=== PATIENT | male | born 1940 | race Caucasian/White ===

== ENCOUNTER 2021-03-18 07:07 | Day surgery (SDC) | payer MEDICARE, OTHER ==
[~2021-03-18 07:07] MED LIST: Acetaminophen 325 MG Tab PO PRN; Acetaminophen/Codeine 300-30 MG Tab PO PRN; Cataract Ophth Solution EYELF ONE; Moxifloxacin 0.5% Ophth Soln 3 ML Bottle EYELF ONE; Ondansetron 4 MG/2 ML SDV IVPUSH PRN; Phenylephrine 10% Ophth Soln 5 ML Bot EYELF ONE; Povidone-Iodine 5% Sterile Ophth Soln 30 ML Bottle EYELF ONE; Proparacaine 0.5% Ophth Soln 15 ML Bottle EYELF ONE; Sodium Chloride 0.9% 10 ML Syringe FLUSH PRN; Timolol Maleate 0.5% Ophth Soln 5 ML Bottle EYELF ONE; Tropicamide 1% Ophth Soln 15 ML Bottle EYELF ONE
[2021-03-18] MEDS ORDERED: Midazolam 1 MG/ML 2 ML SDV IV ONE (07:08)
[2021-03-18] MEDS ORDERED: Sodium Chloride 0.9% 10 ML Syringe IV ONE (07:08)
[2021-03-18] MEDS ORDERED: Dexamethasone 4 MG/ML SDV IV ONE (07:08)
[2021-03-18] MEDS ORDERED: Lidocaine 1% 30 ML SDV ONE (08:18)
[2021-03-18] MEDS ORDERED: Diclofenac Sodium 0.1% Ophth Soln 5 ML Bottle EYELF ONE (08:19)
[2021-03-18] MEDS ORDERED: Apraclonidine 0.5% Ophth Soln 5 ML Bot EYELF ONE (08:19)
[2021-03-18] MEDS ORDERED: Povidone-Iodine 5% Sterile Ophth Soln 30 ML Bottle EYELF ONE (08:19)
[2021-03-18] MEDS ORDERED: Dexamethasone/Neomycin/Polymyxin B Ophth Oint 3.5 GM Tube EYELF ONE (08:19)
[2021-03-18] MEDS ORDERED: Tetracaine HCl/PF 0.5% 4 ML Bottle EYELF ONE (08:19)
[2021-03-18] MEDS ORDERED: Vancomycin 500 MG SDV EYELF ONE (08:20)
[2021-03-18] MEDS ORDERED: Chondroitin Sulfate/Hyaluronate Sodium Ophth Inj 0.5 ML Syringe IOCULAR ONE (08:20)
[2021-03-18] MEDS ORDERED: Acetylcholine 20 MG/2 ML Intraocular Inj Kit EYELF ONE (08:20)
[2021-03-18] MEDS ORDERED: Balanced Salt Solution Ophth Irrig 500 ML Bottle IOCULAR ONE (08:20)
[2021-03-18] MEDS ORDERED: Chondroitin Sulfate/Hyaluronate Sodium Ophth Inj 0.75 ML Syringe EYELF ONE (08:20)
[2021-03-18 12:57] VITALS: BP 140/57; PULSE 49
--- NOTE | 2021-03-18 14:54 | OR ---
DATE: 03/18/2021 PREOPERATIVE DIAGNOSES: 1. Visually significant mixed cataract, left eye. 2. Primary open angle glaucoma, left eye. POSTOPERATIVE DIAGNOSES: 1. Visually significant mixed cataract, left eye. 2. Primary open angle glaucoma, left eye. PROCEDURES: 1. Extracapsular cataract extraction with intraocular lens implant. 2. Placement of iStent for glaucoma control. SURGEON: Edwin Burns MD ANESTHESIA: Local MAC. INDICATION: Mr. Miles was seen in the clinic. He is unhappy with his vision and has difficulty with reading and a progressive change. He has difficulty with bright lights and glare. Saw his regular electro mechanical designer, Dr. Govea. Dr. Govea was not able to improve his vision and reduce his symptoms with the change in glasses. Examination reveals visually significant mixed cataract and moderate primary open-angle glaucoma, which is borderline controlled. Explained options to Mr. Miles. I have offered cataract surgery both to improve vision and to assist with glaucoma control. I explained risks including the potential for infection, retinal detachment, loss of vision, need for additional surgery, amongst others. We discussed implant options. He has requested a toric implant. I recommended surgery with the iStent. He understands that his visual potential may be limited by optic nerve health. He also understands that he may still need glasses for some activities. OPERATIVE DESCRIPTION: The patient was prepped and draped in a sterile fashion and topical anesthesia was applied. Attention was placed on the operative eye. A sterile lid speculum was placed to allow operative exposure. Paracentesis was made temporal. Intracameral lidocaine was administered. Viscoelastic was injected. A full-thickness corneal incision was made using the trapezoidal blade. Bent needle cystotome was then used to make a small michelle in the anterior capsule and a 360-degree curvilinear capsulorrhexis was created. Nucleus was then hydrodissected and hydrodelinated using balanced saline solution. Nucleus was then decompressed centrally and rotated and noted to be free of adhesions. Nucleus was then removed using the phacoemulsification handpiece. Additional viscoelastic was then injected into the capsular bag and the intraocular lens was inserted into the capsular bag. Implant was oriented to correspond with preoperative corneal carney made with the patient in the upright position. The iStent portion of the procedure was then performed. Following removal of the nucleus and cortex, the irrigation and aspiration handpiece was inserted to remove viscoelastic from the posterior surface of the IOL. Additional viscoelastic was then inserted into the anterior chamber angle directly opposite the corneal incision. Miochol was injected into the nasal iris to promote pupillary contraction. The patient's head was then rotated 35 degrees away from the initial position. The operating microscope was also rotated 35 degrees to achieve the proper orientation. The gonioprism was then placed onto the eye. The iStent was then inserted into the anterior chamber with the right hand and the stent was introduced into the pigmented trabecular meshwork. The stent was advanced beneath the trabecular meshwork until approximately two-thirds of the body was covered and then the stent was released from the insertion device. The stent was then tapped into its final resting position using the insertion device. The device was then reinspected to ensure that it was securely in position. The viscoelastic was aspirated from the anterior chamber. Wound and paracentesis sites were hydrated using balanced saline solution. Vancomycin 0.1 mL was injected into the anterior chamber. Intraocular lens was inspected and noted to be clear and well centered. Postoperative drops were placed and a sterile eye patch and shield were placed over the operative eye. The patient was then transported to the postoperative recovery area having tolerated the procedure well. No complications occurred. [facility] /[id number]
== END 2021-03-18 09:36 | disposition home or self-care (01) ==
LOC: DL.SDS 07:07
PROVIDERS: ATTEND Ophthalmology
DX: H26.8 Other specified cataract (principal); H40.1122 Primary open-angle glaucoma, left eye, moderate stage; I10 Essential (primary) hypertension; Z79.899 Other long term (current) drug therapy
CPT/HCPCS: 00140; A9270-GY; C1783; J1100; J2250; J3370; V2787-GY

== ENCOUNTER 2021-03-25 07:02 | Day surgery (SDC) | payer MEDICARE, OTHER ==
[~2021-03-25 07:02] MED LIST changes: -Cataract Ophth Solution EYELF ONE; +Cataract Ophth Solution EYERT ONE; -Moxifloxacin 0.5% Ophth Soln 3 ML Bottle EYELF ONE; +Moxifloxacin 0.5% Ophth Soln 3 ML Bottle EYERT ONE; -Phenylephrine 10% Ophth Soln 5 ML Bot EYELF ONE; +Phenylephrine 10% Ophth Soln 5 ML Bot EYERT ONE; -Povidone-Iodine 5% Sterile Ophth Soln 30 ML Bottle EYELF ONE; +Povidone-Iodine 5% Sterile Ophth Soln 30 ML Bottle EYERT ONE; -Proparacaine 0.5% Ophth Soln 15 ML Bottle EYELF ONE; +Proparacaine 0.5% Ophth Soln 15 ML Bottle EYERT ONE; -Timolol Maleate 0.5% Ophth Soln 5 ML Bottle EYELF ONE; +Timolol Maleate 0.5% Ophth Soln 5 ML Bottle EYERT ONE; -Tropicamide 1% Ophth Soln 15 ML Bottle EYELF ONE; +Tropicamide 1% Ophth Soln 15 ML Bottle EYERT ONE
[2021-03-25] MEDS ORDERED: Dexamethasone 4 MG/ML SDV IV ONE (07:03)
[2021-03-25] MEDS ORDERED: Midazolam 1 MG/ML 2 ML SDV IV ONE (07:03)
[2021-03-25] MEDS ORDERED: Sodium Chloride 0.9% 10 ML Syringe IV ONE (07:03)
[2021-03-25 07:31] VITALS: BP 162/66; PULSE 51
[2021-03-25] MEDS ORDERED: Diclofenac Sodium 0.1% Ophth Soln 5 ML Bottle EYERT ONE (08:34)
[2021-03-25] MEDS ORDERED: Tetracaine HCl/PF 0.5% 4 ML Bottle EYERT ONE (08:34)
[2021-03-25] MEDS ORDERED: Povidone-Iodine 5% Sterile Ophth Soln 30 ML Bottle EYERT ONE (08:34)
[2021-03-25] MEDS ORDERED: Dexamethasone/Neomycin/Polymyxin B Ophth Oint 3.5 GM Tube EYERT ONE (08:35)
[2021-03-25] MEDS ORDERED: Lidocaine 1% 30 ML SDV ONE (08:35)
[2021-03-25] MEDS ORDERED: Balanced Salt Solution Ophth Irrig 500 ML Bottle IOCULAR ONE (08:35)
[2021-03-25] MEDS ORDERED: Apraclonidine 0.5% Ophth Soln 5 ML Bot EYERT ONE (08:35)
[2021-03-25] MEDS ORDERED: Vancomycin 500 MG SDV ONE (08:35)
[2021-03-25] MEDS ORDERED: Chondroitin Sulfate/Hyaluronate Sodium Ophth Inj 0.5 ML Syringe IOCULAR ONE (08:42)
[2021-03-25] MEDS ORDERED: Chondroitin Sulfate/Hyaluronate Sodium Ophth Inj 0.75 ML Syringe EYERT ONE (08:42)
[2021-03-25] MEDS ORDERED: Acetylcholine 20 MG/2 ML Intraocular Inj Kit IOCULAR ONE (08:43)
--- NOTE | 2021-03-25 15:44 | OR ---
DATE: 03/25/2021 PREOPERATIVE DIAGNOSES: 1. Visually significant mixed cataract, right eye. 2. Primary open angle glaucoma, right eye. POSTOPERATIVE DIAGNOSES: 1. Visually significant mixed cataract, right eye. 2. Primary open angle glaucoma, right eye. PROCEDURES: 1. Extracapsular cataract extraction with intraocular lens implant. 2. Placement of iStent for glaucoma control. SURGEON: Edwin Burns MD ANESTHESIA: Local MAC. INDICATION: Mr. Miles was seen in the clinic. He was referred by his regular relationship consultant, Dr. Govea. He has complained of a progressive decrease in vision, difficulty seeing, difficulty reading. Dr. Govea did attempt to change glasses, but glasses did not make any improvement in his vision. Examination revealed mixed cataract and moderate primary open-angle glaucoma under borderline control. I explained options and recommended cataract surgery both to improve vision and to potentially improve glaucoma control. I explained risks, including, but not limited to, infection, retinal detachment, loss of vision, need for additional surgery amongst others. We discussed implant options. He has requested a toric implant. I recommended surgery with the iStent. OPERATIVE DESCRIPTION: The patient was prepped and draped in a sterile fashion and topical anesthesia was applied. Attention was placed on the operative eye. A sterile lid speculum was placed to allow operative exposure. Paracentesis was made temporal. Intracameral lidocaine was administered. Viscoelastic was injected. A full-thickness corneal incision was made using the trapezoidal blade. Bent needle cystotome was then used to make a small michelle in the anterior capsule and a 360-degree curvilinear capsulorrhexis was created. Nucleus was then hydrodissected and hydrodelinated using balanced saline solution. Nucleus was then decompressed centrally and rotated and noted to be free of adhesions. Nucleus was then removed using the phacoemulsification handpiece. Additional viscoelastic was then injected into the capsular bag and the intraocular lens was inserted into the capsular bag. The implant was oriented to correspond with preoperative corneal carney made with the patient in the upright position. The iStent portion of the procedure was then performed. Following removal of the nucleus and cortex, the irrigation and aspiration handpiece was inserted to remove viscoelastic from the posterior surface of the IOL. Additional viscoelastic was then inserted into the anterior chamber angle directly opposite the corneal incision. Miochol was injected into the nasal iris to promote pupillary contraction. The patient's head was then rotated 35 degrees away from the initial position. The operating microscope was also rotated 35 degrees to achieve the proper orientation. The gonioprism was then placed onto the eye. The iStent was then inserted into the anterior chamber with the right hand and the stent was introduced into the pigmented trabecular meshwork. The stent was advanced beneath the trabecular meshwork until approximately two-thirds of the body was covered and then the stent was released from the insertion device. The stent was then tapped into its final resting position using the insertion device. The device was then reinspected to ensure that it was securely in position. The viscoelastic was aspirated from the anterior chamber. Wound and paracentesis sites were hydrated using balanced saline solution. Vancomycin 0.1 mL was injected into the anterior chamber. Intraocular lens was inspected and noted to be clear and well centered. Postoperative drops were placed and a sterile eye patch and shield were placed over the operative eye. The patient was then transported to the postoperative recovery area having tolerated the procedure well. No complications occurred. [facility] /[id number]
== END 2021-03-25 09:51 | disposition home or self-care (01) ==
LOC: DL.SDS 07:02
PROVIDERS: ATTEND Ophthalmology
DX: H26.8 Other specified cataract (principal); H40.1112 Primary open-angle glaucoma, right eye, moderate stage; I10 Essential (primary) hypertension; N35.914 Unspecified anterior urethral stricture, male
CPT/HCPCS: 0191T; 66984; A9270; C1783; J1100; J2250; J3370; V2787

== ENCOUNTER 2021-04-01 16:29 | Emergency (ER) | payer MEDICARE, OTHER ==
[2021-04-01] MEDS ORDERED: Sodium Chloride 0.9% 10 ML Syringe FLUSH PRN (16:32)
--- NOTE | 2021-04-01 16:53 | CT ---
EXAMINATION: Head wo Cont SEX: Male AGE: 80 years CLINICAL HISTORY: 80-year-old dehydrated, confused male who exhibited right sided weakness and right facial droop while "denis". Scan technique: Volume acquisition of data emergency unenhanced CT scan of the head and brain obtained with the patient lying supine on the Siemens multi slice scanner [place], [place]. All data archived in the PACS system for storage, reformatting axial/sagittal/coronal planes and study. (Bone/brain windows) Interpretation: 1. Generalized mild cerebral cortical atrophy pattern symmetric with underlying mirror-image normal ventricular system. No hydrocephalus. 2. No focal areas of cerebral edema, ischemic infarct or encephalomalacia however patient does exhibit changes of the periventricular white matter consistent with microvascular ischemia (scattered low-attenuation areas). 3. No supratentorial or posterior fossa mass lesion. 4. Uniformly thick bony calvarium. Symmetric clear pneumatization of the paranasal and mastoid sinuses. 5. No sign of acute intracerebral, intraventricular or subarachnoid bleed. No extracerebral epidural/subdural hematoma. 6. Midline falx/pineal and symmetric choroid plexus calcifications. 7. Cerebellum and brainstem unremarkable. CONCLUSION: Scattered microvascular ischemic changes. No sign of intracranial mass, hydrocephalus or bleed.
[2021-04-01 17:15] VITALS: BP 137/59; PULSE 69
--- NOTE | 2021-04-01 17:15 | CR ---
PROCEDURE INFORMATION: Exam: XR Chest Exam date and time: 04/01/2021 5:04 PM Age: 80 years old Clinical indication: Other: Possible aspiration; Additional info: Acute CVA, possible aspiration TECHNIQUE: Imaging protocol: XR of the chest. Views: 1 view. COMPARISON: CR Chest 1V Frontal 02/05/2015 4:41 PM FINDINGS: Lungs: The lungs are clear. Pleural spaces: No pleural effusion. No pneumothorax. Heart/Mediastinum: The heart is not enlarged. Vasculature: Tortuous thoracic aorta stable. Bones/joints: Status post median sternotomy. Multiple healed left lateral rib fractures. IMPRESSION: 1. Postoperative chest 2. No acute findings. No change.
[2021-04-01] MEDS ORDERED: ALTEPLASE IV STA (17:25)
[2021-04-01] MEDS ORDERED: INFUSION IV STA (17:25)
[2021-04-01 17:36] LABS: ANION GAP 14.8 mEq/L (7-13); CHLORIDE,CL 106 mmol/L (98-107); SODIUM,NA 142 mmol/L (136-145)
--- NOTE | 2021-04-01 17:44 | EDM.PDOC ---
Scribed by Lorena Mejía 04/01/21 7700 for Franklin Devlin MD ED HPI GENERAL MEDICAL PROBLEM - General Chief Complaint: Neuro Symptoms/Deficits Stated Complaint: AMBULANCE Time Seen by Provider: 04/01/21 16:36 Source of Information: Reports: Patient, EMS, EMS Notes Reviewed, Family (, daughter), Old Records, RN, RN Notes Reviewed History Limitations: Reports: No Limitations - History of Present Illness INITIAL COMMENTS - FREE TEXT/NARRATIVE: Patient arrives to ED by [facility]. Patient was singling a roof, thought he was getting a heat stroke and realized the right side of his body was profoundly weak. Witnesses noted that he was drooling. Unclear whether he had facial droop at that time or not. Denies headache, visual changes, s eizure or loss of bowel or bladder control. Last known well time: 1600HRS. Onset: Today Duration: Constant Location: Reports: Face, Upper Extremity, Right, Lower Extremity, Right Quality: Reports: Other (Denies pain) Severity: Severe Improves with: Reports: None Worsens with: Reports: None Associated Symptoms: Reports: No Other Symptoms - Related Data Allergies Allergy/AdvReac Type Severity Reaction Status Date / Time No Known Allergies Allergy Verified 03/25/21 07:23 Home Meds: Home Meds Aspirin [Kamilla Chewable Aspirin] 81 mg PO DAILY 02/05/15 [History] Docusate Sodium [Colace] 100 mg PO BID 02/05/15 [History] Famotidine [Pepcid] 20 mg PO DAILY 02/05/15 [History] Lisinopril 5 mg PO DAILY 02/05/15 [History] Nitroglycerin [Nitrostat] 0.4 mg SL [id number] PRN 02/05/15 [History] atenoloL [Tenormin] 50 mg PO DAILY 02/05/15 [History] Acetaminophen [Tylenol Extra Strength] 500 mg PO BID PRN 05/13/16 [History] Multivitamin with Minerals [Multiple Vitamin] 2 tab PO DAILY 05/13/16 [History] atorvaSTATin [Lipitor] 40 mg PO DAILY 12/15/17 [History] Cranberry 400 mg PO DAILY 03/17/21 [History] Ketorolac [Acular 0.5% Ophth Soln] 1 drop EYELF ASDIRECTED 03/17/21 [History] Ofloxacin 1 drop EYELF ASDIRECTED 03/17/21 [History] prednisoLONE acetate [Pred Forte 1% Ophth Susp] 1 drop EYELF ASDIRECTED 03/17/21 [History] Past Medical History HEENT History: Reports: Cataract Cardiovascular History: Reports: CAD, High Cholesterol, Hypertension Respiratory History: Reports: None Gastrointestinal History: Reports: GERD Genitourinary History: Reports: BPH, Other (See Below) 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 Musculoskeletal History: Reports: None Neurological History: Reports: None Psychiatric History: Reports: None Endocrine/Metabolic History: Reports: None Hematologic History: Reports: None Immunologic History: Reports: None Oncologic (Cancer) History: Reports: None Dermatologic History: Reports: None - Infectious Disease History Infectious Disease History: Reports: Chicken Pox, Measles - Past Surgical History Head Surgeries/Procedures: Reports: None HEENT Surgical History: Reports: Cataract Surgery Cardiovascular Surgical History: Reports: Coronary Artery Bypass Respiratory Surgical History: Reports: None GI Surgical History: Reports: Colonoscopy, Colostomy Male Surgical History: Reports: Circumcision, Other (See Below) Other Male Surgeries/Procedures: URETERAL MEATOTOMY. CYSTOSCOPY, DIL URETHRAL STRICTURE 2013, 2017 Endocrine Surgical History: Reports: None Neurological Surgical History: Reports: Lumbar Spine Musculoskeletal Surgical History: Reports: Other (See Below) Other Musculoskeletal Surgeries/Procedures:: lumbar spine surg Oncologic Surgical History: Reports: None Dermatological Surgical History: Reports: None Social & Family History - Family History Family Medical History: No Pertinent Family History - Caffeine Use Caffeine Use: Reports: Coffee Other Caffeine Use: AM 2 CUPS, WINTER TIME MAY HAVE AT LUNCH - Living Situation & Occupation Living situation: Reports: with Family Occupation: Other ED ROS GENERAL - Review of Systems Review Of Systems: Comprehensive ROS is negative, except as noted in HPI. ED EXAM, NEURO - Physical Exam Exam: See Below Exam Limited By: No Limitations General Appearance: Alert, WD/WN, No Apparent Distress Eye Exam: Bilateral Eye: EOMI, Normal Inspection, PERRL Ears: Normal External Exam, Hearing Grossly Normal Nose: Normal Inspection, Normal Mucosa, No Blood Throat/Mouth: Normal Lips, Normal Teeth, Normal Gums, Normal Oropharynx, Normal Voice, No Airway Compromise Head Exam: Atraumatic, Normocephalic Neck: Normal Inspection, Supple, Non-Tender, Full Range of Motion. No: Carotid Bruit Respiratory/Chest: No Respiratory Distress, Lungs Clear, Normal Breath Sounds, No Accessory Muscle Use, Chest Non-Tender Cardiovascular: Normal Peripheral Pulses, Regular Rate, Rhythm, No Edema, No Gallop, No JVD, No Murmur, No Rub GI/Abdominal: Normal Bowel Sounds, Soft, Non-Tender Neurological: Alert, Normal Mood/Affect, Normal Dorsiflexion, Normal Plantar Flexion, Oriented x 3, Abnormal Motor (NIH Stroke score: 3), Other (Right facial weakness, droop. Weak right balloon sander strength. Weak right leg, falls to bed, tremor.) Extremities: Non-Tender, No Pedal Edema, Normal Capillary Refill Psychiatric: Normal Affect, Normal Mood Skin Exam: Warm, Dry, Intact, Normal Color, No Rash #1 Interpretation EKG Date: 04/01/21 Time: 16:56 Rhythm: Other (sinus rhythm) Rate (Beats/Min): 69 [place]: Normal P-Wave: Present QRS: Other (consider left ventricular hypertrophy) ST-T: Normal QT: Normal Comparison: NA - No Prior EKG Course - Vital Signs Last Recorded V/S: Last Vital Signs Temp 98 F 04/01/21 17:04 Pulse 69 04/01/21 17:04 Resp 20 04/01/21 17:04 BP 137/59 L 04/01/21 17:04 Pulse Ox - Orders/Labs/Meds Orders: Active Orders 24 hr Category Date Time Status EKG 12 Lead [EKG Documentation Completion] [RC] STAT Care 04/01/21 16:31 Active NIH Stroke Scale [RC] ASDIRECTED Care 04/01/21 16:31 Active Peripheral IV Care [RC] . DIRECTED Care 04/01/21 16:32 Active C-REACTIVE PROTEIN [CHEM] Stat Lab 04/01/21 17:00 Received COMPREHENSIVE METABOLIC PN,CMP [CHEM] Stat Lab 04/01/21 17:00 Received DRUG SCREEN URINE BIORAD [URCHEM] Stat Lab 04/01/21 16:31 Ordered ETHANOL BLOOD MEDICAL [CHEM] Stat Lab 04/01/21 17:00 Received MAGNESIUM [CHEM] Stat Lab 04/01/21 17:00 Received TROPONIN I HIGH SENSITIVITY [CHEM] Stat Lab 04/01/21 17:00 Received TSH ULTRASENSITIVE [CHEM] Stat Lab 04/01/21 17:00 Received UA RFX LYLE AND CULT IF INDIC [URIN] Stat Lab 04/01/21 16:32 Ordered Sodium Chloride 0.9% [Saline Flush] Med 04/01/21 16:32 Active 10 ml FLUSH ASDIRECTED PRN Peripheral IV Insertion Adult [OM.PC] Stat Oth 04/01/21 16:32 Ordered Medication Orders Sodium Chloride (Sodium Chloride 0.9% 10 Ml Syringe) 10 ml FLUSH ASDIRECTED PRN PRN Reason: Keep Vein Open Labs: Laboratory Tests 04/01/21 04/01/21 Range/Units 17:00 17:00 WBC 11.4 H (5.0-10.0) 10^3/uL RBC 4.54 L (4.6-6.2) 10^6/uL Hgb 15.4 (14.0-18.0) g/dL Hct 44.2 (40.0-54.0) % MCV 97.4 (80-100) fL MCH 33.9 (27.0-34.0) pg MCHC 34.8 (33.0-35.0) g/dL Plt Count 165 (150-450) 10^3/uL Neut % (Auto) 77.1 H (42.2-75.2) % Lymph % (Auto) 14.2 L (20.5-50.1) % Wells % (Auto) 7.3 (2-8) % Eos % (Auto) 1.2 (1.0-3.0) % Baso % (Auto) 0.2 (0.0-1.0) % PT 10.3 (9.0-12.0) SEC INR 1.0 (0.9-1.2) Meds: Medications Generic Name Dose Route Start Last Admin Trade Name Freq PRN Reason Stop Dose Admin Sodium Chloride 10 ml 04/01/21 16:32 Sodium Chloride 0.9% 10 Ml Syringe FLUSH ASDIRECTED PRN Keep Vein Open Discontinued Medications Generic Name Dose Route Start Last Admin Trade Name Freq PRN Reason Stop Dose Admin Alteplase, Recombinant 59.9 mg 0 mls @ 0 mls/hr 04/01/21 17:25 / Alteplase, Recombinant IV 04/01/21 17:26 ASDIRECTED STA - Radiology Interpretation Free Text/Narrative:: CT head: Scattered microvascular ischemic changes. No sign of intracranial mass, hydrocephalus or bleed. See rad report. - Re-Assessments/Exams Free Text/Narrative Re-Assessment/Exam: 04/01/21 17:[address] Bolton via [facility], he advises to offer tPA to the pt. Pt had recent cataract surgery and urethra dilatation, and Dr. Coy does not feel these to be contraindications to tPA. I explained the risks and benefits of tPA to the pt, pt's , and daughter. They acknowledge understanding of the risks and benefits of tPA and wish to receive the medication. Pt will be transferred to [facility] by air ambulance, with Dr. Bolton accepting. 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 DIRECTED UA RFX LYLE AND CULT IF INDIC [URIN] Stat Sodium Chloride 0.9% [Saline Flush] 10 ml FLUSH ASDIRECTED PRN Peripheral IV Insertion Adult [OM.PC] Stat 04/01/21 17:00 C-REACTIVE PROTEIN [CHEM] Stat COMPREHENSIVE METABOLIC PN,CMP [CHEM] Stat ETHANOL BLOOD MEDICAL [CHEM] Stat MAGNESIUM [CHEM] Stat TROPONIN I HIGH SENSITIVITY [CHEM] Stat TSH ULTRASENSITIVE [CHEM] Stat - Assessment/Plan Last 24 Hours: My Active Orders 04/01/21 16:31 EKG 12 Lead [EKG Documentation Completion] [RC] STAT NIH Stroke Scale [RC] ASDIRECTED DRUG SCREEN URINE BIORAD [URCHEM] Stat 04/01/21 16:32 Peripheral IV Care [RC] . DIRECTED UA RFX LYLE AND CULT IF INDIC [URIN] Stat Sodium Chloride 0.9% [Saline Flush] 10 ml FLUSH ASDIRECTED PRN Peripheral IV Insertion Adult [OM.PC] Stat 04/01/21 17:00 C-REACTIVE PROTEIN [CHEM] Stat COMPREHENSIVE METABOLIC PN,CMP [CHEM] Stat ETHANOL BLOOD MEDICAL [CHEM] Stat MAGNESIUM [CHEM] Stat TROPONIN I HIGH SENSITIVITY [CHEM] Stat TSH ULTRASENSITIVE [CHEM] Stat I have read and agree with the documentation that has been completed regarding this visit. By signing this record, I attest that the documentation was completed in my physical presence and is an accurate record of the encounter.
== END 2021-04-01 18:30 ==
LOC: DL.ED 16:29
DX: I63.9 Cerebral infarction, unspecified (principal); I67.82 Cerebral ischemia; I25.10 Atherosclerotic heart disease of native coronary artery without angina pectoris; E78.00 Pure hypercholesterolemia, unspecified; I10 Essential (primary) hypertension; Z79.82 Long term (current) use of aspirin; Z79.899 Other long term (current) drug therapy; Z95.1 Presence of aortocoronary bypass graft
CPT/HCPCS: 36415; 37195; 70450; 71045; 80053; 80307; 83605; 83735; 84443; 84484; 85025; 85610; 86140; 93005; 99285; J2997; 93010

== ENCOUNTER 2021-09-04 08:58 | Emergency (ER) | payer MEDICARE, OTHER ==
--- NOTE | 2021-09-04 09:05 | EDM.PDOC ---
ED HPI GENERAL MEDICAL PROBLEM - General Chief Complaint: Chest Pain Stated Complaint: chest pains Time Seen by Provider: 09/04/21 09:04 Source of Information: Reports: Patient, Old Records, RN, RN Notes Reviewed History Limitations: Reports: No Limitations - History of Present Illness INITIAL COMMENTS - FREE TEXT/NARRATIVE: Pt presents to ER from home by POV with c/o onset of left sided chest pain yesterday while lifting plywood overhead. Pt states the pain is a pressure-like with aching. The pain does not radiate. Denies syncope, lightheadedness, shortness of breath, fever, cough, palpitations, edema, or orthopnea. Pt claims that he had a heart attack 10 years ago and had stents, but no problems since that time. Pt rates the current pain 02/07. Nothing alleviates the pain. Some movements aggravates the pain. Onset: Gradual Onset Date: 09/03/21 Duration: Constant Location: Reports: Chest Quality: Reports: Ache, Pressure Severity: Moderate Associated Symptoms: Reports: No Other Symptoms Treatments STRADDLE BUG: Reports: Acetaminophen - Related Data Allergies Allergy/AdvReac Type Severity Reaction Status Date / Time No Known Allergies Allergy Verified 03/25/21 07:23 Home Meds: Home Meds Aspirin [Kamilla Chewable Aspirin] 81 mg PO DAILY 02/05/15 [History] Docusate Sodium [Colace] 100 mg PO BID 02/05/15 [History] Famotidine [Pepcid] 20 mg PO DAILY 02/05/15 [History] Lisinopril 5 mg PO DAILY 02/05/15 [History] Nitroglycerin [Nitrostat] 0.4 mg SL [id number] PRN 02/05/15 [History] atenoloL [Tenormin] 50 mg PO DAILY 02/05/15 [History] Acetaminophen [Tylenol Extra Strength] 500 mg PO BID PRN 05/13/16 [History] Multivitamin with Minerals [Multiple Vitamin] 2 tab PO DAILY 05/13/16 [History] atorvaSTATin [Lipitor] 40 mg PO DAILY 12/15/17 [History] Cranberry 400 mg PO DAILY 03/17/21 [History] Ketorolac [Acular 0.5% Ophth Soln] 1 drop EYELF ASDIRECTED 03/17/21 [History] Ofloxacin 1 drop EYELF ASDIRECTED 03/17/21 [History] prednisoLONE acetate [Pred Forte 1% Ophth Susp] 1 drop EYELF ASDIRECTED 03/17/21 [History] Past Medical History HEENT History: Reports: Cataract Cardiovascular History: Reports: CAD, High Cholesterol, Hypertension, [place], Stents Respiratory History: Reports: None Gastrointestinal History: Reports: GERD Genitourinary History: Reports: BPH, Other (See Below) 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 Musculoskeletal History: Reports: None Neurological History: Reports: None Psychiatric History: Reports: None Endocrine/Metabolic History: Reports: None Hematologic History: Reports: None Immunologic History: Reports: None Oncologic (Cancer) History: Reports: None Dermatologic History: Reports: None - Infectious Disease History Infectious Disease History: Reports: Chicken Pox, Measles - Past Surgical History Head Surgeries/Procedures: Reports: None HEENT Surgical History: Reports: Cataract Surgery Cardiovascular Surgical History: Reports: Coronary Artery Bypass Respiratory Surgical History: Reports: None GI Surgical History: Reports: Colonoscopy, Colostomy Male Surgical History: Reports: Circumcision, Other (See Below) Other Male Surgeries/Procedures: URETERAL MEATOTOMY. CYSTOSCOPY, DIL URETHRAL STRICTURE 2013, 2017 Endocrine Surgical History: Reports: None Neurological Surgical History: Reports: Lumbar Spine Musculoskeletal Surgical History: Reports: Other (See Below) Other Musculoskeletal Surgeries/Procedures:: lumbar spine surg Oncologic Surgical History: Reports: None Dermatological Surgical History: Reports: None Social & Family History - Family History Family Medical History: No Pertinent Family History - Tobacco Use Tobacco Use Status *Q: Never Tobacco User - Caffeine Use Caffeine Use: Reports: Coffee Other Caffeine Use: AM 2 CUPS, WINTER TIME MAY HAVE AT LUNCH - Living Situation & Occupation Living situation: Reports: with Family Occupation: Other ED ROS GENERAL - Review of Systems Review Of Systems: Comprehensive ROS is negative, except as noted in HPI. ED EXAM, GENERAL - Physical Exam Exam: See Below Exam Limited By: No Limitations General Appearance: Alert, WD/WN, No Apparent Distress Eye Exam: Bilateral Eye: Normal Inspection Nose: Normal Inspection Throat/Mouth: Normal Inspection, Normal Voice, No Airway Compromise Head: Atraumatic, Normocephalic Neck: Normal Inspection, Non-Tender, Full Range of Motion Respiratory/Chest: No Respiratory Distress, Lungs Clear, Normal Breath Sounds, No Accessory Muscle Use, Chest Non-Tender Cardiovascular: Normal Peripheral Pulses, Regular Rate, Rhythm, No Edema, No Gallop, No JVD, No Murmur, No Rub GI/Abdominal: Normal Bowel Sounds, Soft, Non-Tender Back Exam: Normal Inspection Extremities: Normal Inspection, Normal Range of Motion, Non-Tender, No Pedal Edema. No: Uzma's Sign Neurological: Alert, Oriented, CN II-XII Intact, Normal Cognition, Normal Gait, No Motor/Sensory Deficits Psychiatric: Normal Affect, Normal Mood Skin Exam: Warm, Dry, Intact, Normal Color, No Rash #1 Interpretation EKG Date: 09/04/21 Time: 09:09 Rhythm: Other (SR) Rate (Beats/Min): 66 [place]: Normal P-Wave: Present QRS: Other (abnormal R-wave progression, early transition) ST-T: Normal QT: Normal Comparison: No Change #2 Interpretation EKG Date: 09/04/21 Time: 11:33 Rhythm: Other (SR) Rate (Beats/Min): 53 [place]: LAD-Left [place] Deviation P-Wave: Present QRS: Other (LVH) ST-T: Normal QT: Normal Comparison: No Change Course - Vital Signs Last Recorded V/S: Last Vital Signs Temp 98 F 09/04/21 09:10 Pulse 62 09/04/21 09:10 Resp 13 09/04/21 09:10 BP 128/68 09/04/21 09:51 Pulse Ox 96 09/04/21 09:10 - Orders/Labs/Meds Orders: Active Orders 24 hr Category Date Time Status EKG Documentation Completion [RC] ONETIME Care 09/04/21 11:15 Active Peripheral IV Care [RC] . DIRECTED Care 09/04/21 09:06 Active Nitroglycerin [Nitrostat] Med 09/04/21 09:06 Active 0.4 mg SL Q5M PRN Sodium Chloride 0.9% [Saline Flush] Med 09/04/21 09:06 Active 10 ml FLUSH ASDIRECTED PRN Peripheral IV Insertion Adult [OM.PC] Stat Oth 09/04/21 09:06 Ordered Medication Orders Nitroglycerin (Nitroglycerin 0.4 Mg Tab.Sl) 0.4 mg SL Q5M PRN PRN Reason: Chest Pain Last Admin: 09/04/21 09:51 Dose: 0.4 mg Documented by: Admin: 09/04/21 09:20 Dose: 0.4 mg Documented by: HODODEB Sodium Chloride (Sodium Chloride 0.9% 10 Ml Syringe) 10 ml FLUSH ASDIRECTED PRN PRN Reason: Keep Vein Open Labs: Laboratory Tests 09/04/21 09/04/21 09/04/21 Range/Units 09:15 09:15 09:15 WBC 5.5 (5.0-10.0) 10^3/uL RBC 4.30 L (4.6-6.2) 10^6/uL Hgb 14.7 (14.0-18.0) g/dL Hct 42.5 (40.0-54.0) % MCV 98.8 (80-100) fL MCH 34.2 H (27.0-34.0) pg MCHC 34.6 (33.0-35.0) g/dL Plt Count 146 L (150-450) 10^3/uL Neut % (Auto) 70.5 (42.2-75.2) % Lymph % (Auto) 19.6 L (20.5-50.1) % [place] % (Auto) 7.5 (2-8) % Eos % (Auto) 2.0 (1.0-3.0) % Baso % (Auto) 0.4 (0.0-1.0) % PT 10.4 (9.0-12.0) SEC INR 1.0 (0.9-1.2) APTT 25.4 (22.0-34.0) SEC Sodium 143 (136-145) mmol/L Potassium 4.1 (3.5-5.1) mmol/L Chloride 107 (98-107) mmol/L Carbon Dioxide 28 (21-32) mmol/L Anion Gap 12.1 (7-13) mEq/L BUN 19 H (7-18) mg/dL Creatinine 1.27 (0.70-1.30) mg/dL Est Cr Clr Drug Dosing TNP Estimated GFR (MDRD) 55 BUN/Creatinine Ratio 15.0 (No establ ref range) Glucose 99 (70-99) mg/dL Calcium 8.6 (8.5-10.1) mg/dL Total Bilirubin 0.6 (0.2-1.0) mg/dL AST 24 (15-37) U/L ALT 27 (16-63) U/L Alkaline Phosphatase 75 (46-116) U/L Troponin I High Sens 39 (<=76) pg/mL Total Protein 6.7 (6.4-8.2) g/dL Albumin 3.9 (3.4-5.0) g/dL Globulin 2.8 Albumin/Globulin Ratio 1.4 Amylase 71 (25-115) U/L Lipase 65 L (73-393) U/L 09/04/21 Range/Units 11:11 WBC (5.0-10.0) 10^3/uL RBC (4.6-6.2) 10^6/uL Hgb (14.0-18.0) g/dL Hct (40.0-54.0) % MCV (80-100) fL MCH (27.0-34.0) pg MCHC (33.0-35.0) g/dL Plt Count (150-450) 10^3/uL Neut % (Auto) (42.2-75.2) % Lymph % (Auto) (20.5-50.1) % [place] % (Auto) (2-8) % Eos % (Auto) (1.0-3.0) % Baso % (Auto) (0.0-1.0) % PT (9.0-12.0) SEC INR (0.9-1.2) APTT (22.0-34.0) SEC Sodium (136-145) mmol/L Potassium (3.5-5.1) mmol/L Chloride (98-107) mmol/L Carbon Dioxide (21-32) mmol/L Anion Gap (7-13) mEq/L BUN (7-18) mg/dL Creatinine (0.70-1.30) mg/dL Est Cr Clr Drug Dosing Estimated GFR (MDRD) BUN/Creatinine Ratio (No establ ref range) Glucose (70-99) mg/dL Calcium (8.5-10.1) mg/dL Total Bilirubin (0.2-1.0) mg/dL AST (15-37) U/L ALT (16-63) U/L Alkaline Phosphatase (46-116) U/L Troponin I High Sens 34 (<=76) pg/mL Total Protein (6.4-8.2) g/dL Albumin (3.4-5.0) g/dL Globulin Albumin/Globulin Ratio Amylase (25-115) U/L Lipase (73-393) U/L Meds: Medications Generic Name Dose Route Start Last Admin Trade Name Freq PRN Reason Stop Dose Admin Nitroglycerin 0.4 mg 09/04/21 09:06 09/04/21 09:51 Nitroglycerin 0.4 Mg Tab.Sl SL 0.4 mg Q5M PRN Administration Chest Pain Sodium Chloride 10 ml 09/04/21 09:06 Sodium Chloride 0.9% 10 Ml Syringe FLUSH ASDIRECTED PRN Keep Vein Open Discontinued Medications Generic Name Dose Route Start Last Admin Trade Name Freq PRN Reason Stop Dose Admin Aspirin 324 mg 09/04/21 09:06 09/04/21 09:19 Aspirin 81 Mg Tab.Chew PO 09/04/21 09:07 324 mg ONETIME ONE Administration - Radiology Interpretation Free Text/Narrative:: [facility] Final Radiology Report Call: [phone] assistance Online chat: [email or web address] Name: BECCA MCMAHON Age: 81Years M Date: 09/04/2021 SSN: -- : [id number] Study: CR CHEST 1V FRONTAL Requesting Physician: JODY HUNTER Images: 1 Addl Studies: Provided Clinical History: chest pain Contrast: Contrast Medium: Contrast Amount: Contrast Method: CONFIDENTIALITY STATEMENT This report is intended only for use by the referring physician, and only in accordance with law. If you received this in error, call [phone]. Page 1 of 1 PROCEDURE INFORMATION: Exam: XR Chest Exam date and time: 09/04/2021 9:33 AM Age: 81 years old Clinical indication: Pain; Other: Chest; Prior surgery; Surgery date: 6+ months; Surgery type: Heart; Additional info: Chest pain TECHNIQUE: Imaging protocol: XR of the chest. Views: 1 view. COMPARISON: CR Chest 1V Frontal 04/01/2021 5:04 PM FINDINGS: Lungs: The lungs are normally expanded and clear. Pleural spaces: Normal. Heart/Mediastinum: Normal heart and cardio-mediastinal silhouette. Vasculature: Normal pulmonary vessels and width of the vascular pedicle. Bones/joints: Healed left rib fractures and distal right clavicle fracture. No acute fracture. Median sternotomy wires. IMPRESSION: The no acute cardiopulmonary disease. Thank you for allowing us to participate in the care of your patient. Dictated and Authenticated by: Herminio Mckinley MD 09/04/2021 9:49 AM Central Time ([place] & [place]) - Re-Assessments/Exams Free Text/Narrative Re-Assessment/Exam: 09/04/21 11:55 Serial troponin's negative, no ischemic changes on EKG, benign lab evaluation, and no acute findings on chest XR. Plan to d/c pt home with instructions to f/u in clinic next week for recheck and to consider cardiac stress test if indicated. Departure - Departure Time of Disposition: 11:57 Disposition: Home, Self-Care 01 Condition: Good Clinical Impression: Chest pain Qualifiers: Chest pain type: intercostal pain Qualified Code(s): R07.82 - Intercostal pain Instructions: Nonspecific Chest Pain, Adult, [id number] Forms: ED Department Discharge Additional Instructions: Follow up in clinic next week for recheck, and consideration of cardiac stress test. Return to ER if worse at any time. Sepsis Event Note (ED) - Focused Exam Vital Signs: Vital Signs Temp Pulse Resp BP BP Pulse Ox 09/04/21 09:51 128/68 09/04/21 09:20 177/75 H 09/04/21 09:10 98 F 62 13 165/71 H 96 - My Orders Last 24 Hours: My Active Orders 09/04/21 09:06 Peripheral IV Care [RC] . DIRECTED Nitroglycerin [Nitrostat] 0.4 mg SL Q5M PRN Sodium Chloride 0.9% [Saline Flush] 10 ml FLUSH ASDIRECTED PRN Peripheral IV Insertion Adult [OM.PC] Stat 09/04/21 11:15 EKG Documentation Completion [RC] ONETIME - Assessment/Plan Last 24 Hours: My Active Orders 09/04/21 09:06 Peripheral IV Care [RC] . DIRECTED Nitroglycerin [Nitrostat] 0.4 mg SL Q5M PRN Sodium Chloride 0.9% [Saline Flush] 10 ml FLUSH ASDIRECTED PRN Peripheral IV Insertion Adult [OM.PC] Stat 09/04/21 11:15 EKG Documentation Completion [RC] ONETIME
[2021-09-04] MEDS ORDERED: Sodium Chloride 0.9% 10 ML Syringe FLUSH PRN (09:06)
[2021-09-04] MEDS ORDERED: Aspirin 81 MG Tab.Chew PO ONE (09:06)
[2021-09-04] MEDS: Nitroglycerin 0.4 MG Tab.SL SL PRN ×2 (09:20→09:51)
[2021-09-04 09:37] LABS: PTT,PARTIAL THROMBOPLSTIN TIME 25.4 SEC (22.0-34.0)
[2021-09-04 09:42] LABS: ANION GAP 12.1 mEq/L (7-13); CHLORIDE,CL 107 mmol/L (98-107); SODIUM,NA 143 mmol/L (136-145)
--- NOTE | 2021-09-04 09:49 | CR ---
PROCEDURE INFORMATION: Exam: XR Chest Exam date and time: 09/04/2021 9:33 AM Age: 81 years old Clinical indication: Pain; Other: Chest; Prior surgery; Surgery date: 6+ months; Surgery type: Heart; Additional info: Chest pain TECHNIQUE: Imaging protocol: XR of the chest. Views: 1 view. COMPARISON: CR Chest 1V Frontal 04/01/2021 5:04 PM FINDINGS: Lungs: The lungs are normally expanded and clear. Pleural spaces: Normal. Heart/Mediastinum: Normal heart and cardio-mediastinal silhouette. Vasculature: Normal pulmonary vessels and width of the vascular pedicle. Bones/joints: Healed left rib fractures and distal right clavicle fracture. No acute fracture. Median sternotomy wires. IMPRESSION: The no acute cardiopulmonary disease.
[2021-09-04 10:00] VITALS: BP 165/71; PULSE 62
== END 2021-09-04 12:04 | disposition home or self-care (01) ==
LOC: DL.ED 08:58
DX: R07.82 Intercostal pain (principal); I25.10 Atherosclerotic heart disease of native coronary artery without angina pectoris; E78.00 Pure hypercholesterolemia, unspecified; I10 Essential (primary) hypertension; I25.2 Old myocardial infarction; K21.9 Gastro-esophageal reflux disease without esophagitis; Z79.82 Long term (current) use of aspirin; Z79.899 Other long term (current) drug therapy
CPT/HCPCS: 36415; 71045; 80053; 82150; 83690; 84484; 85025; 85610; 85730; 93005; 99285; A9270

== ENCOUNTER 2023-10-25 09:02 | Emergency (ER) | payer MEDICARE, OTHER ==
[2023-10-25] MEDS ORDERED: Sodium Chloride 0.9% 10 ML Syringe FLUSH PRN (09:20)
[2023-10-25 09:26] LABS: BASOPHILS PERCENT AUTO 0.1 % (0.0-1.0); HEMATOCRIT 44.1 % (40.0-54.0); HEMOGLOBIN 15.3 g/dL (14.0-18.0); LYMPHOCYTES PERCENT AUTO 16.8 % (20.5-50.1); MEAN CORPUSCULAR HEMOGLOBIN 33.9 pg (27.0-34.0); MEAN CORPUSCULAR HGB CONC 34.7 g/dL (33.0-35.0); MEAN CORPUSCULAR VOLUME 97.8 fL (80-100); NEUTROPHILS PERCENT AUTO 73.1 % (42.2-75.2); PLATELET COUNT,PLT 139 10^3/uL (150-450); RED BLOOD CELL COUNT 4.51 10^6/uL (4.6-6.2); WHITE BLOOD CELL COUNT,WBC 10.4 10^3/uL (5.0-10.0)
[2023-10-25 09:45] LABS: A/G RATIO 1.2; ALANINE AMINOTRANSFERASE,ALT 29 U/L (16-63); ALBUMIN 3.8 g/dL (3.4-5.0); ALKALINE PHOSPHATASE 80 U/L (46-116); ANION GAP 13.1 mEq/L (7-13); ASPARTATE AMNIOTRANSFERASE,AST 22 U/L (15-37); BILIRUBIN TOTAL 0.4 mg/dL (0.2-1.0); BLOOD UREA NITROGEN,BUN 26 mg/dL (7-18); BUN/CREATININE RATIO 18.6 (No establ ref range); CALCIUM 8.6 mg/dL (8.5-10.1); CARBON DIOXIDE,CO2 27 mmol/L (21-32); CHLORIDE,CL 104 mmol/L (98-107); GLUCOSE RANDOM 121 mg/dL (70-99); MAGNESIUM 1.8 mg/dL (1.8-2.4); POTASSIUM,K 4.1 mmol/L (3.5-5.1); PROTEIN TOTAL,TP 7.1 g/dL (6.4-8.2); SODIUM,NA 140 mmol/L (136-145)
[2023-10-25 09:47] LABS: C-REACTIVE PROTEIN < 0.50 ng/dL (<=0.50); ESTIMATED GFR 50 mL/min (>=60)
[2023-10-25] MEDS ORDERED: Sodium Chloride 0.9% 1,000 ML IV ONE (09:59)
[2023-10-25 10:22] VITALS: BP 143/89; PULSE 69
[2023-10-25] MEDS ORDERED: Ketorolac 30 MG/ML SDV IVPUSH ONE (10:24)
[2023-10-25 10:48] LABS: CORONAVIRUS COVID-19 NAA NEGATIVE (NEGATIVE); INFLUENZA A NAA NEGATIVE (NEGATIVE); INFLUENZA B NAA NEGATIVE (NEGATIVE)
[2023-10-25 10:58] LABS: APPEARANCE,URINE SLIGHTLY CLOUDY (CLEAR); BILIRUBIN,URINE NEGATIVE (NEGATIVE); COLOR,URINE YELLOW (YELLOW); GLUCOSE,URINE NEGATIVE (NEGATIVE); KETONES,URINE NEGATIVE (NEGATIVE); LEUKOCYTE ESTERASE,URINE TRACE (NEGATIVE); NITRITE,URINE POSITIVE (NEGATIVE); OCCULT BLOOD,URINE TRACE-INTACT (NEGATIVE); PH,URINE 5.5 (5.0-9.0); PROTEIN,URINE TRACE (NEGATIVE); UROBILINOGEN,URINE 0.2 mg/dL (0.2-1.0)
[2023-10-25 11:09] LABS: AMORPHOUS SEDIMENT,URINE FEW /HPF (NOT SEEN); BACTERIA,URINE MANY /HPF (0-FEW/HPF); EPITHELIAL CELLS,URINE FEW /HPF (NOT SEEN); RBC,URINE 0-5 /HPF (0-5)
[2023-10-25] MEDS ORDERED: cefTRIAXone 2 GM Vial IVPUSH ONE (11:13)
== END 2023-10-25 11:27 | disposition home or self-care (01) ==
LOC: DL.ED 09:02
DX: N30.01 Acute cystitis with hematuria (principal); I25.10 Atherosclerotic heart disease of native coronary artery without angina pectoris; E78.00 Pure hypercholesterolemia, unspecified; I10 Essential (primary) hypertension; I25.2 Old myocardial infarction; Z20.822 Contact with and (suspected) exposure to COVID-19; Z95.5 Presence of coronary angioplasty implant and graft; Z79.82 Long term (current) use of aspirin; Z79.899 Other long term (current) drug therapy
CPT/HCPCS: 0240U; 36415; 70450; 71101; 80053; 81001; 83735; 84484; 85025; 86140; 87086; 93005; 96361; 96374; 96375; 99285; J0696; J1885; J7030; J3490

== ENCOUNTER 2024-03-18 19:04 | Emergency (ER) | payer MEDICARE, OTHER ==
[2024-03-18 19:55] VITALS: BP 165/80; PULSE 57
== END 2024-03-18 22:00 | disposition home or self-care (01) ==
LOC: DL.ED 19:04
DX: N40.1 Benign prostatic hyperplasia with lower urinary tract symptoms (principal); I10 Essential (primary) hypertension; I25.10 Atherosclerotic heart disease of native coronary artery without angina pectoris; E78.00 Pure hypercholesterolemia, unspecified; Z79.82 Long term (current) use of aspirin; Z79.899 Other long term (current) drug therapy
CPT/HCPCS: 51702; 99283

== ENCOUNTER 2024-03-19 19:04 | Emergency (ER) | payer MEDICARE, OTHER ==
[2024-03-19 19:45] VITALS: BP 154/67; PULSE 66
== END 2024-03-19 20:00 | disposition home or self-care (01) ==
LOC: DL.ED 19:04
DX: T83.091D Other mechanical complication of indwelling urethral catheter, subsequent encounter (principal); I10 Essential (primary) hypertension; E78.00 Pure hypercholesterolemia, unspecified; I25.10 Atherosclerotic heart disease of native coronary artery without angina pectoris; Z86.16 Personal history of COVID-19; Z79.82 Long term (current) use of aspirin; Z79.899 Other long term (current) drug therapy
CPT/HCPCS: 51700; 99283; 99283-25